=== PATIENT | male | born 1950 ===

== ENCOUNTER 2025-03-22 05:45 | Day surgery (SDC) | payer OTHER ==
[2025-03-22] MEDS ORDERED: MIDAZOLAM HCL 2 MG/2 ML VIAL IV ONE (10:15)
[2025-03-22] MEDS ORDERED: DIPHENHYDRAMINE HCL 50 MG/ML VIAL 1ML IV ONE (10:15)
[2025-03-22] MEDS ORDERED: fentaNYL CITRATE 50 MCG/ML AMPUL IV PUSH ONE (10:15)
== END 2025-03-22 10:55 | disposition home or self-care (01) ==
LOC: AMB-ENDOS 05:45
PROVIDERS: ATTEND Surgery
DX: D12.5 Benign neoplasm of sigmoid colon (principal); K63.5 Polyp of colon